=== PATIENT | male | born 1975 | race Asian ===

== ENCOUNTER → 2016-11-24 | Outpatient (CLI) | payer BC ==
--- NOTE | 2016-11-24 15:08 | DIAGNOSTIC IMAGING REPORT ---
CHEST 2 VIEWS ROUTINE CLINICAL HISTORY: Cough. Shortness of breath. COMPARISON STUDY: Chest radiograph May 03, 2016. FINDINGS: Lung volumes are normal. There is no pneumothorax or pleural effusion. Cardiac size is normal. Mediastinal contours are normal. There is no evidence of pulmonary edema. Lungs are clear. IMPRESSION: No acute cardiopulmonary findings. Electronically signed by: Rajesh Benson M.D. 11/24/2016 3:07 PM Dictated Date/Time: 11/24/2016 3:06 PM
== END | disposition home or self-care (01) ==
LOC: C.RAD 14:30
PROVIDERS: ATTEND Nurse Practitioner Family
DX: J18.9 Pneumonia, unspecified organism (principal)